=== PATIENT | male | born 1935 | race Caucasian/White ===

== ENCOUNTER → 2017-07-26 | Outpatient (CLI) | payer OTHER, BC ==
[~2017-07-26] VITALS: Ht 175.3 cm; Wt 86.5 kg
[~2017-07-26] MED LIST: ACIPHEX 20 MG T20 MG PO; AMARYL1 MG PO; AMARYL2 MG PO; ASPIRIN EC325 M1 PO; ASPIRIN325 PO; BAYER CHEWABLE81 MG PO; BRINTELLIX20 MG PO; BUPROPION HCL PO; BUSPIRONE HCL15 MG PO; CALCIUM CITRAT1 EA19 PO; CRESTOR20 MG PO; CRESTOR40 MG PO; GLUCOPHAGE1000 MG PO; JANUVIA100 MG PO; L-METHYLFOLATE1 EAC4 PO; L-METHYLFOLATE15 MG PO; LISINOPRIL10 MG PO; METFORMIN HCL1000 M1 PO; METHYLPREDNISOLO4 M1 PO; METOCLOPRAMIDE10 MG PO; NITROGLYCERIN0.4 MG SUBLING; OMEPRAZOLE 20 M20 M1 PO; PACERONE200 MG PO; PEPCID20 MG PO; PLAVIX 75 MG TA75 M1 PO; PRADAXA150 MG PO; PREDNISONE 10 M10 MG PO; PRILOSEC 20 MG20 MG PO; PRISTIQ100 MG PO; PRISTIQ50 M1 PO; PROTONIX40 M1 PO; SINEMET 25-1001 EAC1 PO; TOPROL XL25 MG PO; VITAMIN B-12500 MCG PO; VITAMIN D32000 UNIT PO; WELLBUTRIN XL300 MG PO
--- NOTE | ~2017-07-26 | HPC ---
[facility] [address] [place] [address] PAIN MANAGEMENT CONSULTATION Name: COREY FOURNIER Room #: [facility].#: [id number] Admission: 07/26/17 Attend Phys: Aguilar Rollins DO Discharge: Date of : 33 Report #: [id number] THIS REPORT FOR: //name// CC: Sapphire Rollins DATE OF SERVICE: 07/26/2017 REFERRING PHYSICIAN: Sapphire Connor M.D. CHIEF COMPLAINT: Low back pain, left lower extremity pain with paresthesias. HISTORY OF PRESENT ILLNESS: As you know, the patient is an 81-year-old male who has been referred to our service for ongoing low back pain, left lower extremity pain and paresthesias. The patient apparently failed conservative treatment through his primary care physician's office and was subsequently referred to our clinic to discuss epidural injections. He indicates today pain is continuous, steady and constant, describes the pain as burning, shooting, aching and sharp, places current pain score at 8/10, daily average at 8/10, worst pain has been 9/10. The patient states pain is exacerbated with lying down, improves with repositioning. He has been referred to our service to discuss treatment options for suspected lumbar radiculopathy. PAST MEDICAL HISTORY: 1. Hypertension. 2. Parkinson's disease. 3. Diabetes mellitus type 2. 4. Dyslipidemia. 5. Gastroesophageal reflux disease. PAST SURGICAL HISTORY: 1. Coronary artery stenting. 2. Herniorrhaphy. SOCIAL HISTORY: The patient smokes 1 pack tobacco per day, has done so for 40 years. Denies IV or illicit drug use. Admits to one alcoholic beverage per month. He is retired, retired 20 years ago. He is not receiving workmen's compensation nor is trying to obtain disability benefits. Not in litigation in regards to pain. REVIEW OF SYSTEMS: Positive for weight gain, decrease in appetite, fatigue and weakness, hearing loss with tinnitus, heart trouble, requiring stenting, change in bowel movements, interspersed with constipation, frequent urination, nocturia, incontinence and dribbling to urine, change of force or stream urination, sexual difficulty, lightheadedness, dizziness, depression, insomnia, [facility] [address] [place] [address] PAIN MANAGEMENT CONSULTATION Name: COREY FOURNIER Room #: [facility].#: [id number] Admission: 07/26/17 Attend Phys: Aguilar Rollins DO Discharge: Date of : 33 Report #: [id number] non-insulin dependent diabetes and hypertension. All other review of systems negative per 12-point review of systems other than those listed in history of present illness. Pain impact score 33/70 indicating moderate interference of daily activities secondary to pain. ALLERGIES: No reported drug allergies. CURRENT MEDICATIONS: Prednisone and the Medrol Dosepak, pantoprazole 40 mg per day, L-methylfolate 1 tab per day, famotidine 20 mg per day, Pradaxa 150 mg twice a day, cyanocobalamin once a day, cholecalciferol 2000 units per day, carbidopa/levodopa 25/100 mg 3 times a day, amiodarone 200 mg once a day, Trintellix 20 mg once a day, Januvia 100 mg per day, aspirin 325 mg per day, metformin 1000 mg twice a day, nitroglycerin 0.4 mg p.r.n., lisinopril 10 mg per day, metoprolol 25 mg once a day. IMAGING: MRI lumbar spine obtained 07/18/2017 shows small focal disk protrusion, sequestered disk fragment just superior to the left L3-L4 disk space, contributes to moderate to severe left foraminal stenosis adjacent left endplate edema noted, multilevel degenerative changes with grade 1 anterolisthesis of L4 on L5 and L5 on S1, combination resulting in moderate central canal stenosis and moderate left and severe right foraminal stenosis at L5-S1. PHYSICAL EXAMINATION: VITAL SIGNS: Blood pressure 116/56, pulse 82, respiratory rate 16, unlabored. The patient is 97% on room air, height 5 feet 9 inches tall, weight 190 pounds, BMI calculated 28.2. GENERAL: Well-developed, well-nourished, well-hydrated 81-year-old male appearing his stated age, placing current pain score at 8/10. HEENT: Normocephalic, atraumatic. Pupils are equal, round and reactive to light. Extraocular muscles are intact. Sclerae are nonicteric without injection. NEUROLOGIC: Speech is fluent for the patient. The patient deemed a fair historian. LUNGS: Clear. No wheeze, rhonchi or rales. CARDIOVASCULAR: Regular. No appreciable gallop or rub. ABDOMEN: Soft, nontender, nondistended. EXTREMITIES: Show no clubbing, no cyanosis, no edema. MUSCULOSKELETAL: Lower extremity strength appears equal and symmetrical 5/5. Deconditioning noted bilaterally. Ankle clonus is negative. Babinski is negative. Seated straight leg raising negative. Supine straight leg raising positive on the left. Sushma's test negative. Modified Gaenslen's positive for axial low back pain. Intact to light touch from L1 through S2 dermatomes. Gait antalgic favoring left lower extremity over right. [address] [address] PAIN MANAGEMENT CONSULTATION Name: COREY FOURNIER Room #: [facility]#: [id number] Admission: 07/26/17 Attend Phys: Aguilar Rollins DO Discharge: Date of : 33 Report #: [id number] ASSESSMENT: 1. Symptomatic lumbar radiculopathy. 2. Spinal stenosis of lumbar spine. 3. Displacement of lumbar intervertebral disk with radiculopathy. 4. Lumbosacral spondylosis with radiculopathy. 5. Lumbar degeneration. 6. Chronic intractable pain. PLAN: 1. Based on today's physical exam, history the patient has provided, the prescription the patient uses in regards to pain as well as the location of symptoms and the finding on MRI, likely source of the patient's pain is lumbar radiculopathy. The patient is suffering from changes at the L3-L4 level that correlate the patient's current pain and distribution. The patient and I discussed at length the treatment options available for lumbar radicular pain secondary to the findings at the L3-L4 level. These would include physical therapy, stretching exercises, core strengthening. We discussed medication management with the addition of a neuropathic pain medication. He has precluded from having a nonsteroidal anti-inflammatory due to the concomitant use of Pradaxa. We discussed the epidural injections for which the patient was referred to our clinic, spinal cord stimulator therapy and surgical options. After reviewing risks and benefits of all proposed treatment options, the patient chose to undergo epidural injection under fluoroscopic guidance. The patient indicates today he has stopped his Pradaxa well before our clinic visit today. Typical time off Pradaxa is 5 days, the patient has been off for nearly 12. He is prepared to undergo the procedure today. He has been advised of the risks and the benefits of a lumbar epidural injection. These risks include but are not necessarily limited to bleeding, bruising, infection, worsening pain, no relief of pain, also risk of temporary or permanent muscle weakness, temporary or permanent nerve damage, possible paralysis and . The patient states understood and wished to proceed. 2. No medication changes were made at today's visit. The patient will restart his Pradaxa starting today and continue the Pradaxa until our next visit. 3. We will see the patient back in followup visit in approximately 3 weeks. At that time, we will discuss the efficacy of today's epidural injection and determine if next in the series would be necessary. The patient was advised that he has to be off his Pradaxa 5 days prior to the injection to safely undergo the procedure. 4. We wish to thank the referring physician, Dr. Sapphire Connor for the referral of this patient to our clinic. We will keep you apprised of his response to treatment as we address his lumbar radicular symptoms. Again, we wish to thank you for the opportunity to participate in his care[place] [address] PAIN MANAGEMENT CONSULTATION Name: SHANTANUCOREY Room #: REG [facility]#: [id number] Admission: 07/26/17 Attend Phys: Aguilar Rollins DO Discharge: Date of : 33 Report #: [id number] DESCRIPTION OF PROCEDURE: L4-L5 left paramedian epidural steroid injection under fluoroscopic guidance. This is the first procedure of the first series that the patient is undergoing. After obtaining written consent, the patient was taken back to the fluoroscopy suite, placed in a prone position with pillow under the abdomen to decrease lumbar lordosis. The skin overlying the lumbosacral area was then prepped and draped in aseptic fashion. The L4-L5 vertebral interspace was then identified by AP fluoroscopy. The skin and subcutaneous tissue overlying the target site of injection was anesthetized with 3 mL 1% lidocaine. A 20-gauge 3-1/2 Tuohy needle was then advanced under fluoroscopic guidance towards the epidural space using a left paramedian approach. The epidural space was identified using loss of resistance to air technique. After negative aspiration for heme or cerebrospinal fluid, a total of 1 mL of Omnipaque was injected. A lumbar epidurogram was confirmed using both AP and lateral fluoroscopy. After negative aspiration for heme or cerebrospinal fluid, 5 mL of a solution containing 2 mL 40 mg per mL, 80 mg total triamcinolone, 3 mL lidocaine 1% was injected in increments. Contrast spread was noted posterior epidural space. The needle was then retracted approximately half way and needle tract flushed with 1 mL of 1% lidocaine. Needle was then removed. There were no apparent sensory or motor deficits in the lower extremity following the procedure. A sterile bandage was placed over the injection site. The heart rate, pulse, oximetry and blood pressure were continuously monitored after the procedure. There were no apparent complications. The patient tolerated the procedure well and was carefully escorted to the recovery room in stable condition. There were no apparent complications. After meeting discharge criteria, the patient was then discharged home. By: [id number] Aguilar Rollins DO /nt
[2017-07-26 13:56] VITALS: BP 116/56
== END | disposition home or self-care (01) ==
LOC: PAIN 07:14
DX: M51.16 Intervertebral disc disorders with radiculopathy, lumbar region (principal); M48.06 Spinal stenosis, lumbar region; M47.27 Other spondylosis with radiculopathy, lumbosacral region; G89.29 Other chronic pain; G20 Parkinson's disease; E78.5 Hyperlipidemia, unspecified; K21.9 Gastro-esophageal reflux disease without esophagitis; Z95.1 Presence of aortocoronary bypass graft; Z98.890 Other specified postprocedural states; F17.210 Nicotine dependence, cigarettes, uncomplicated; Z85.46 Personal history of malignant neoplasm of prostate; F98.8 Other specified behavioral and emotional disorders with onset usually occurring in childhood and adolescence; F32.9 Major depressive disorder, single episode, unspecified; E11.22 Type 2 diabetes mellitus with diabetic chronic kidney disease; I12.9 Hypertensive chronic kidney disease with stage 1 through stage 4 chronic kidney disease, or unspecified chronic kidney disease; N18.3 Chronic kidney disease, stage 3 (moderate)

== ENCOUNTER → 2019-03-21 | Outpatient (CLI) | payer OTHER, BC ==
[~2019-03-21] VITALS: Ht 177.8 cm; Wt 93.1 kg
[~2019-03-21] MED LIST changes: +GLUCOPHAGE XR500 MG PO; +LEVOXYL25 MCG PO; +RITALIN5 MG PO; +XARELTO20 MG PO
[2019-03-21 08:58] VITALS: BP 123/73
--- NOTE | 2019-03-21 09:17 | NUR ---
Pain Clinic Assessment: 1. History of Osteoarthritis: History of Rheumatoid Arthritis: 2. Height: 5 ft. 10 in. 177.8 cm. Weight: 205.2 lb. oz. 93.078 kg. Patient's BMI: 29.4 3. Vital Signs: BP: 123/73 Pulse: 60 Resp: 16 Temp: 02 Sat: 99 ECG Mon: 4. Pain Intensity: 5 5. Fall Risk: Dizziness: Y Needs help standing or walking: N Fallen in the last 3 months: N Fall risk comments: 6. Patient on Blood Thinner: XARELTO 7. History of Hypertension: Y 8. Opioid Therapy greater than 6 weeks: N Opiate Contract Signed: 9. Risk Assessment Tool Provided: LOW 10. Functional Assessment Tool: 11. Recreational Drug Use: Never Drug Type: Tobacco Use: Former Smoker Tobacco Type: Amount or Packs/day: How Many Years: Alcohol Use: No Frequency: Quant:
--- NOTE | 2019-03-28 12:39 | HPC ---
[facility] [place] [address] PAIN MANAGEMENT CONSULTATION Name: SHANTANUCOREY Do Room #: [facility]#: [id number] Admission: 03/21/19 ������������������ Attend Phys: Aguilar Rollins DO Discharge: ������������������ Date of : 33 Report #: [id number] THIS REPORT FOR: //name// CC: Sapphire Rollins DATE OF SERVICE: 03/21/2019 CHIEF COMPLAINT: Low back pain, left lower extremity pain with paresthesias. HISTORY OF PRESENT ILLNESS: As you know, the patient is a pleasant 83-year-old male who returns today in followup visit having recurrence of pain that began about 5 weeks ago. The patient denies any specific injury or trauma. He describes the pain as constant, burning, aching, sharp in sensation, exacerbated with lying down, improves with exercises and previous epidural injections. He is placing pain score at 5/10. The patient was last seen in our clinic and underwent a lumbar epidural injection on 07/26/2017 with good efficacy. He returns today requesting next in the series of lumbar epidural injections to address recurrent lumbar radicular symptoms. He denies injury or trauma. ALLERGIES: NO REPORTED DRUG ALLERGIES. CURRENT MEDICATIONS: Metformin, Xarelto, prednisone, pantoprazole, L-methylfolate, famotidine, cyanocobalamin, cholecalciferol, carbidopa/levodopa, calcium carbonate, amiodarone, Trintellix, aspirin, metformin, nitroglycerin, lisinopril and metoprolol. SOCIAL HISTORY: The patient continues to smoke 1 pack tobacco per day, has done so for 43 years. Denies IV or illicit drug use. Admits to 1 alcoholic beverage per month. He is retired, he retired years ago, accompanied by his family member present in room today. IMAGING: There is no new imaging available. PQRS: The patient has known osteoarthritic changes of the lumbar spine, bilateral hips and bilateral knees. No rheumatoid arthritis. He is not a fall risk, has not had a fall in the last 3 months, placing pain score 5/10. He is on blood thinner in the form of Xarelto, but discontinued the medication 3 days ago in preparation for today's procedure. He is treated for hypertension. He is not on chronic opioids. He has a low opioid addiction potential. He is placing pain impact score 41/70 indicating moderate to severe interference of daily activities secondary to pain. PHYSICAL EXAMINATION: VITAL SIGNS: Blood pressure 123/73, pulse 60, respiratory rate [address] [address] PAIN MANAGEMENT CONSULTATION Name: COREY FOURNIER Room #: [facility]#: [id number] Admission: 03/21/19 ������������������ Attend Phys: Aguilar Rollins DO Discharge: ������������������ Date of : 33 Report #: [id number] unlabored, the patient is 99% on room air. Height 5 feet 10 inches tall, weight 205.2 pounds, BMI calculated 29.4. GENERAL: Well-developed, well-nourished, well-hydrated 83-year-old male appearing stated age, placing current pain score at 5/10. HEENT: Normocephalic, atraumatic. Pupils equal, round, reactive to light. EXTREMITIES: Show no clubbing and no cyanosis and no edema. MUSCULOSKELETAL: Lower extremity strength appears symmetrical 5/5. Slight giveaway strength noted on the left when compared to right. Pain is generated with this maneuver. Seated straight leg raising negative. Supine straight leg raising positive on the left. Sushma's test negative. Modified Gaenslen's positive for axial low back pain. Ankle clonus negative. Gait, mildly antalgic favoring the left lower extremity over right. ASSESSMENT: 1. Symptomatic lumbar radiculopathy. 2. Spinal stenosis of the lumbar spine. 3. Displacement of lumbar intervertebral disk with radiculopathy. 4. Lumbosacral spondylosis with radiculopathy. 5. Lumbar degeneration. 6. Chronic intractable pain. PLAN: 1. The patient returns today in followup visit having recurrence of lumbar radicular symptoms involving left lower extremity that began about 5 weeks ago. The patient denies any specific injury or trauma that may have led to symptom recurrence. He returns today requesting to undergo a lumbar epidural injection under fluoroscopic guidance to address lumbar radicular symptoms. He has been advised the risks and benefits of the procedure, states understood and wished to proceed. 2. The patient will restart his Xarelto this evening. He will continue the Xarelto as directed. He will need to discontinue this medication 3 days prior to our next appointment if he wishes to undergo next in the series of lumbar epidural injections. 3. No medication changes made at today's visit. The patient will continue current medical therapy. 4. We will see the patient back in followup visit on an as needed basis for possible next in the series of lumbar epidural injections. PROCEDURE NOTE DESCRIPTION OF PROCEDURE: L4-L5 interlaminar epidural steroid injection under fluoroscopic guidance. After obtaining written consent, the patient was taken back to fluoroscopy suite, placed in prone position with pillow under abdomen to decrease lumbar lordosis. Skin overlying lumbosacral area then prepped and draped in aseptic [address] [address] PAIN MANAGEMENT CONSULTATION Name: COREY FOURNIER Room #: [facility]#: [id number] Admission: 03/21/19 ������������������ Attend Phys: Aguilar Rollins DO Discharge: ������������������ Date of : 31 Report #: [id number] fashion. The L4-L5 vertebral interspace identified by AP fluoroscopy. Skin and subcutaneous tissue overlying target site of injection was anesthetized with 3 mL of 1% lidocaine. A 20-gauge 3-1/2 inch Tuohy needle advanced under fluoroscopic guidance towards the epidural space using a paramedian approach. Epidural space identified using loss of resistance to air technique. After negative aspiration for heme or cerebrospinal fluid, 1 mL of Omnipaque injected. A lumbar epidurogram confirmed using both AP and lateral fluoroscopy. After negative aspiration for heme or cerebrospinal fluid, 5 mL of a solution containing 2 mL 40 mg per mL 80 mg total triamcinolone, 3 mL lidocaine 1% injected slowly. Needle retracted shelter, flushed with 1 mL of 1% lidocaine and then removed. Sterile bandage placed over injection site. No new motor deficits present in the lower extremities following procedure. The patient tolerated the procedure well, carefully escorted to recovery room in stable condition. No apparent complications. After meeting discharge criteria, the patient discharged home. ��������������������������������������������� <ELECTRONICALLY SIGNED> ���������������������������������������� By: Aguilar Rollins DO ��������������������������������������������� 03/28/19 1239 0740 0149 Aguilar Rollins DO /nt
== END | disposition home or self-care (01) ==
LOC: PAIN 06:55
DX: M51.16 Intervertebral disc disorders with radiculopathy, lumbar region (principal); M48.061 Spinal stenosis, lumbar region without neurogenic claudication; M47.27 Other spondylosis with radiculopathy, lumbosacral region; G89.29 Other chronic pain; M19.90 Unspecified osteoarthritis, unspecified site; Z79.01 Long term (current) use of anticoagulants; I10 Essential (primary) hypertension; Z79.899 Other long term (current) drug therapy; Z87.891 Personal history of nicotine dependence; Z79.82 Long term (current) use of aspirin; Z98.890 Other specified postprocedural states

== ENCOUNTER → 2019-03-27 | Outpatient (CLI) | payer OTHER, BC ==
[~2019-03-27] VITALS: Ht 175.3 cm; Wt 93.0 kg
[2019-03-27 10:04] LABS: HEMATOCRIT 40.5 % (42.0-52.0); HEMOGLOBIN 13.3 gm/dL (14.0-18.0); MCH 28.6 pg (26.0-34.0); MCHC 32.9 g/dL (28.0-37.0); MCV 86.9 fL (80.0-100.0); RBC 4.66 mil/uL (4.50-6.00); RDW 13.9 % (10.5-14.5); WBC 8.9 thou/uL (4.0-11.0)
[2019-03-27 10:13] LABS: ANION GAP 7 mmol/L (7-16); BUN 42 mg/dL (7-18); CALCIUM 9.9 mg/dL (8.5-10.1); CHLORIDE 102 mmol/L (98-107); CO2 26 mmol/L (21-32); CREATININE 1.9 mg/dL (0.7-1.3); GLUCOSE 285 mg/dL (74-106); POTASSIUM 4.8 mmol/L (3.5-5.1); SODIUM 135 mmol/L (136-145)
[2019-03-27 10:19] LABS: CHOLESTEROL 113 mg/dL (<200); HDL CHOLESTEROL 55 mg/dL (>40); LDL CHOLESTEROL 44 mg/dL (<100); TC:HDL 2.1 Ratio (Not establshd); TRIGLYCERIDE 72 mg/dL (<150); VLDL 14 mg/dL (<40)
[2019-03-27 10:24] VITALS: BP 136/73
--- NOTE | 2019-03-27 17:15 | EKG ---
[address] [address] ELECTROCARDIOGRAM REPORT Name: COREY FOURNIER Room #: [facility]#: [id number] ������������������ Admission: 03/27/19 ������������������ Attend Phys: Pito Gomes MD Discharge: ������������������ Date of : 33 Report #: [id number] ����������������������������������������������������������������� [id number] THIS REPORT FOR: //name// [facility] Test Date: 2019-03-27 Test Time: 10:07:07 Pat Name: COREY FOURNIER Department: Room: Gender: Legal Document Specialist: Larry BERKOWITZ : 1935 Requested By: Pito Gomes Order Number: [id number] MD: Kaushik Desouza Measurements Intervals [place] Rate: 62 P: 55 SD: 188 QRS: -1 QRSD: 97 T: 59 QT: 434 QTc: 441 Interpretive Statements Sinus rhythm Compared to ECG 04/30/2018 16:17:03 No significant changes Electronically Signed On 03-27-2019 17:15:41 CDT by Kaushik Desouza [email or web address] ��������������������������������������������� <ELECTRONICALLY SIGNED> ���������������������������������������� By: Kaushik Desouza MD ��������������������������������������������� 03/27/19 1715 1007 MD ONEAL Gannon
== END | disposition home or self-care (01) ==
LOC: CATH 05:44
PROVIDERS: Internal Medicine Cardiovascular Disease
DX: R07.9 Chest pain, unspecified (principal); I12.9 Hypertensive chronic kidney disease with stage 1 through stage 4 chronic kidney disease, or unspecified chronic kidney disease; E11.22 Type 2 diabetes mellitus with diabetic chronic kidney disease; N18.3 Chronic kidney disease, stage 3 (moderate); I25.10 Atherosclerotic heart disease of native coronary artery without angina pectoris; I48.91 Unspecified atrial fibrillation; E78.5 Hyperlipidemia, unspecified; E78.00 Pure hypercholesterolemia, unspecified; G20 Parkinson's disease; F32.9 Major depressive disorder, single episode, unspecified; Z82.49 Family history of ischemic heart disease and other diseases of the circulatory system; Z98.890 Other specified postprocedural states; Z85.46 Personal history of malignant neoplasm of prostate; Z90.49 Acquired absence of other specified parts of digestive tract; Z79.01 Long term (current) use of anticoagulants; Z53.8 Procedure and treatment not carried out for other reasons; Z79.899 Other long term (current) drug therapy

== ENCOUNTER → 2019-04-02 | Outpatient (CLI) | payer OTHER, BC | LOC: ULTRA 14:23 | DX: N28.9 Disorder of kidney and ureter, unspecified (principal); I10 Essential (primary) hypertension ==

== ENCOUNTER → 2019-04-09 | Outpatient (CLI) | payer OTHER, BC ==
[~2019-04-09] VITALS: Ht 175.3 cm; Wt 93.0 kg
[2019-04-09 09:07] LABS: HEMATOCRIT 41.1 % (42.0-52.0); HEMOGLOBIN 13.4 gm/dL (14.0-18.0); MCH 28.8 pg (26.0-34.0); MCHC 32.6 g/dL (28.0-37.0); MCV 88.5 fL (80.0-100.0); RBC 4.65 mil/uL (4.50-6.00); RDW 13.7 % (10.5-14.5)
[2019-04-09 09:09] VITALS: BP 121/63
[2019-04-09 09:17] LABS: CALCIUM 10.4 mg/dL (8.5-10.1); POTASSIUM 4.2 mmol/L (3.5-5.1)
--- NOTE | 2019-04-09 16:43 | CATHLAB ---
[facility] [address] [place] [address] INVASIVE PROCEDURE REPORT Name: COREY FOURNIER [facility] [id number] ������������� Admission: 04/09/19 ������������� Attend Phys: Pito Gomes MD Discharge: ��� ������������� ��� Date of : 31 Date of Service: 04/09/19 1643 �� Report #: [id number] �������� ��������������������������������������������[id number] THIS REPORT FOR: //name// APPROVED REPORT Study performed: 04/09/2019 12:15:03 Patient Details Patient Status: Out-Patient Room #: The patient is a 83 year-old male Event Personnel Pito Gomes Senior Manufacturing Technician, Ivelisse Huff RN, Elana Sexton RN RN, Renata OLIVERA CRITICAL CARE CLINICAL NURSE SPECIALIST Scrub, Morena Amaya RTR, CRITICAL CARE CLINICAL NURSE SPECIALIST Monitor Procedures Performed Art Access - R femoral artery* Left Heart Cath w/or w/o Coronaries [id number] [facility] [id number] Initial Mod Sed Same Phys/QHP Gr5y [id number] Hemostasis with Manual pressure Indication Dyspnea, Positive stress test Risk Factors Hypercholesterolemia, Coronary Artery DiseaseHypertensionRenal Failure, Diabetes Previous Procedures/Diagnoses Previous PCI Procedure Narrative The Right Groin^ was infiltrated with 1% Lidocaine subcutaneous anesthesia. A PINNACLE 4FR Sheath #[id number] sheath was inserted into the RFA^. Coronary angiography was performed using coronary diagnostic catheters. The right coronary system was accessed and visualized with a JR4 catheter. The left coronary system was accessed and visualized with a JL5 catheter. The left ventricle was accessed and visualized with a angled pigtail catheter. Left ventricular/Aortic Valve gradient assessed via catheter pullback. Hemostasis was obtained with manual pressure following sheath removal without any complications. The patient tolerated the procedure well and there were no complications associated with the procedure. There was no hematoma. [facility] [address] [place] [address] INVASIVE PROCEDURE REPORT Name: SHANTANUCOREY CUENCA Room #: REG [facility]#: [id number] ������������� Admission: 04/09/19 ������������� Attend Phys: Pito Gomes MD Discharge: ��� ������������� ��� Date of : 31 Date of Service: 04/09/19 1643 �� Report #: [id number] �������� ��������������������������������������������[id number] Intraoperative Conscious Sedation Sedation start time: 12:37 Case end Time: 13:05 Fentanyl 50 mcg Versed 1 mg Fluoro Time: 1.49 minutes Dose: DAP 3492.20 cGycm2 427 mGy Contrast Type and Amount: Visipaque 30 ml Coronary Angiography The patient's coronary anatomy is right dominant. Diagnostic Cath Left Main This is a large caliber vessel, patent with no flow-limiting lesions. LAD This is a moderate size caliber vessel, traversing the anterior wall and terminating at the apex. The distal segment tapers down to a small caliber vessel. There is mild diffuse disease in the proximal segment, 30%. Diagonal 1 This is a patent vessel, with no flow-limiting lesions. Diagonal 2 This is a patent vessel, with no flow-limiting lesions. Circumflex This is a patent vessel, with no flow-limiting lesions, supplies one moderate size OM vessel. OM1 There is mild diffuse disease in the proximal segment, 20%. As it travels down the lateral wall, it supplies several small branches. Right Coronary This is a moderate to large caliber vessel, dominant. There is a patent stent in the mid/distal segment, with minimal restenosis. R PDA This is a small-caliber vessel, with moderate diffuse disease in the midsegment. RPLV There is a ostial stenosis, 80% - unchanged from prior procedures. Continue with medical therapy. Left Ventriculography Left Ventriculography was not performed. An LVEDP was measured and there is no gradient across the outflow tract. Hemodynamics The aortic pressure is 139/73 mmHg with a mean of 99 mmHg. The left ventricular pressure is 134/12 mmHg with a mean of mmHg. The left ventricular end diastolic pressure is 17 mmHg. Conclusion [facility] [address] [place] [address] INVASIVE PROCEDURE REPORT Name: COREY FOURNIER [facility]: [facility] [id number] ������������� Admission: 04/09/19 ������������� Attend Phys: Pito Gomes MD Discharge: ��� ������������� ��� Date of : 31 Date of Service: 04/09/19 1643 �� Report #: [id number] �������� ��������������������������������������������[id number] 1. Patent stent in the RCA. 2. There is mild disease in the LAD and left circumflex arteries. 3. There is a severe stenosis at the ostium of a right posterior lateral branch. This is unchanged from prior procedures and medical therapy is recommended. 4. Recommend aggressive risk factor management. ��������������������������������������������� <ELECTRONICALLY SIGNED> ���������������������������������������� By: Pito Gomes MD ��������������������������������������������� 04/09/19 1643 164 164 Pito Gomes MD /INF
--- NOTE | 2019-04-09 18:04 | EKG ---
[address] [address] ELECTROCARDIOGRAM REPORT Name: COREY FOURNIER [id number] ������������������ Admission: 04/09/19 ������������������ Attend Phys: Pito Gomes MD Discharge: ������������������ Date of : 31 Report #: [id number] ����������������������������������������������������������������� [id number] THIS REPORT FOR: //name// [facility] Test Date: 2019-04-09 Test Time: 08:57:34 Pat Name: COREY FOURNIER Department: Room: Gender: Sports Commentator: Larry BERKOWITZ : 1935 Requested By: Pito Gomes Order Number: [id number] MD: Kaushik Desouza Measurements Intervals [place] Rate: 58 P: 57 ID: 191 QRS: 5 QRSD: 95 T: 60 QT: 452 QTc: 445 Interpretive Statements Sinus rhythm Compared to ECG 03/27/2019 10:07:07 No significant changes Electronically Signed On 04-09-2019 18:04:43 CDT by Kaushik Desouza [email or web address] ��������������������������������������������� <ELECTRONICALLY SIGNED> ���������������������������������������� By: Kaushik Desouza MD ��������������������������������������������� 04/09/19 1804 0857 6 Kaushik Desouza MD /TRENT
== END | disposition home or self-care (01) ==
LOC: CATH 06:56
PROVIDERS: Internal Medicine Cardiovascular Disease
DX: I25.10 Atherosclerotic heart disease of native coronary artery without angina pectoris (principal); I12.9 Hypertensive chronic kidney disease with stage 1 through stage 4 chronic kidney disease, or unspecified chronic kidney disease; E11.22 Type 2 diabetes mellitus with diabetic chronic kidney disease; N18.3 Chronic kidney disease, stage 3 (moderate); E78.00 Pure hypercholesterolemia, unspecified; G20 Parkinson's disease; F32.9 Major depressive disorder, single episode, unspecified; K21.9 Gastro-esophageal reflux disease without esophagitis; I48.91 Unspecified atrial fibrillation; I48.92 Unspecified atrial flutter; Z85.46 Personal history of malignant neoplasm of prostate; Z90.49 Acquired absence of other specified parts of digestive tract; Z95.5 Presence of coronary angioplasty implant and graft; Z98.890 Other specified postprocedural states; Z79.899 Other long term (current) drug therapy; Z79.01 Long term (current) use of anticoagulants; Z79.82 Long term (current) use of aspirin

== ENCOUNTER 2019-09-20 14:13 | Emergency (ER) | payer OTHER, BC ==
[~2019-09-20] VITALS: Ht 177.8 cm; Wt 76.7 kg
[2019-09-20] MEDS ORDERED: TRAMADOL 50 MG50 MG PO (16:25)
[2019-09-20 17:05] VITALS: BP 134/62
== END 2019-09-20 17:06 | disposition home or self-care (01) ==
LOC: ER 14:13
DX: M54.5 Low back pain (principal); I25.10 Atherosclerotic heart disease of native coronary artery without angina pectoris; I48.91 Unspecified atrial fibrillation; I12.9 Hypertensive chronic kidney disease with stage 1 through stage 4 chronic kidney disease, or unspecified chronic kidney disease; E11.22 Type 2 diabetes mellitus with diabetic chronic kidney disease; N18.3 Chronic kidney disease, stage 3 (moderate); K21.9 Gastro-esophageal reflux disease without esophagitis; G20 Parkinson's disease; F32.9 Major depressive disorder, single episode, unspecified; F90.9 Attention-deficit hyperactivity disorder, unspecified type; F17.210 Nicotine dependence, cigarettes, uncomplicated; Z95.5 Presence of coronary angioplasty implant and graft; Z90.49 Acquired absence of other specified parts of digestive tract; Z79.01 Long term (current) use of anticoagulants; Z85.46 Personal history of malignant neoplasm of prostate; W01.0XXA Fall on same level from slipping, tripping and stumbling without subsequent striking against object, initial encounter; Y93.41 Activity, dancing; Y92.89 Other specified places as the place of occurrence of the external cause; Y99.8 Other external cause status

== ENCOUNTER → 2019-10-30 | Outpatient (CLI) | payer OTHER, BC ==
[~2019-10-30] MED LIST changes: +TRAMADOL 50 MG50 MG PO
== END ==
LOC: CAT 15:13 → RAD 15:13
DX: Z13.6 Encounter for screening for cardiovascular disorders (principal); I27.20 Pulmonary hypertension, unspecified; J98.11 Atelectasis

== ENCOUNTER → 2020-05-06 | Outpatient (CLI) | payer OTHER, BC | LOC: SJCVCIMAG 09:20 | PROVIDERS: ATTEND Internal Medicine Cardiovascular Disease | DX: I07.1 Rheumatic tricuspid insufficiency (principal); I11.9 Hypertensive heart disease without heart failure; I25.10 Atherosclerotic heart disease of native coronary artery without angina pectoris; I48.0 Paroxysmal atrial fibrillation; E78.00 Pure hypercholesterolemia, unspecified; E11.9 Type 2 diabetes mellitus without complications; M19.90 Unspecified osteoarthritis, unspecified site; F17.200 Nicotine dependence, unspecified, uncomplicated; Z82.49 Family history of ischemic heart disease and other diseases of the circulatory system; Z79.899 Other long term (current) drug therapy ==

== ENCOUNTER → 2021-02-24 | Outpatient (CLI) | payer OTHER, BC | LOC: SJCVC 11:35 | PROVIDERS: ATTEND Internal Medicine Cardiovascular Disease | DX: I25.10 Atherosclerotic heart disease of native coronary artery without angina pectoris (principal); I48.0 Paroxysmal atrial fibrillation; E78.00 Pure hypercholesterolemia, unspecified; R60.9 Edema, unspecified; R42 Dizziness and giddiness; M19.90 Unspecified osteoarthritis, unspecified site; E11.9 Type 2 diabetes mellitus without complications; I12.9 Hypertensive chronic kidney disease with stage 1 through stage 4 chronic kidney disease, or unspecified chronic kidney disease; N18.9 Chronic kidney disease, unspecified; F17.200 Nicotine dependence, unspecified, uncomplicated; Z90.49 Acquired absence of other specified parts of digestive tract; Z98.890 Other specified postprocedural states; Z98.61 Coronary angioplasty status; Z79.84 Long term (current) use of oral hypoglycemic drugs; Z79.899 Other long term (current) drug therapy; Z92.29 Personal history of other drug therapy; Z82.49 Family history of ischemic heart disease and other diseases of the circulatory system ==

== ENCOUNTER → 2021-03-19 | Outpatient (CLI) | payer OTHER, BC | LOC: SJCVCIMAG 07:56 | PROVIDERS: ATTEND Internal Medicine Cardiovascular Disease | DX: I25.10 Atherosclerotic heart disease of native coronary artery without angina pectoris (principal); R51.9 Headache, unspecified; R07.89 Other chest pain; M54.9 Dorsalgia, unspecified; I48.0 Paroxysmal atrial fibrillation; E78.00 Pure hypercholesterolemia, unspecified; R60.9 Edema, unspecified; R42 Dizziness and giddiness; M19.90 Unspecified osteoarthritis, unspecified site; E11.22 Type 2 diabetes mellitus with diabetic chronic kidney disease; I12.9 Hypertensive chronic kidney disease with stage 1 through stage 4 chronic kidney disease, or unspecified chronic kidney disease; N18.9 Chronic kidney disease, unspecified; F17.200 Nicotine dependence, unspecified, uncomplicated; Z90.49 Acquired absence of other specified parts of digestive tract; Z98.890 Other specified postprocedural states; Z98.61 Coronary angioplasty status; Z79.84 Long term (current) use of oral hypoglycemic drugs; Z79.899 Other long term (current) drug therapy; Z82.49 Family history of ischemic heart disease and other diseases of the circulatory system ==

== ENCOUNTER → 2021-09-08 | Outpatient (CLI) | payer OTHER, BC | LOC: SJCVC 13:15 | PROVIDERS: ATTEND Internal Medicine Cardiovascular Disease | DX: I48.0 Paroxysmal atrial fibrillation (principal); I25.10 Atherosclerotic heart disease of native coronary artery without angina pectoris; M19.90 Unspecified osteoarthritis, unspecified site; I12.9 Hypertensive chronic kidney disease with stage 1 through stage 4 chronic kidney disease, or unspecified chronic kidney disease; N18.9 Chronic kidney disease, unspecified; E11.22 Type 2 diabetes mellitus with diabetic chronic kidney disease; E78.00 Pure hypercholesterolemia, unspecified; G20 Parkinson's disease; F17.200 Nicotine dependence, unspecified, uncomplicated; R60.9 Edema, unspecified; Z79.84 Long term (current) use of oral hypoglycemic drugs; Z79.899 Other long term (current) drug therapy; Z72.89 Other problems related to lifestyle; Z95.818 Presence of other cardiac implants and grafts ==

== ENCOUNTER → 2021-10-13 | Outpatient (CLI) | payer OTHER, BC ==
--- NOTE | ~2021-10-13 | PFR/MVV ---
[facility] [place] [address] PULMONARY FUNCTION MVV/REPORT Name: COREY FOURNIER Room #: REG [facility].#: [id number] Admission: 10/13/21 Attend Phys: Pito Gomes MD Discharge: Date of : 31 Report #: [id number] THIS REPORT FOR: //name// >> SPIROMETRY: (BTPS) Height: in cm Weight: lbs kg Exam Date: PRE-RX POST-RX PRED BEST %PRED BEST %PRED %CHG FVC LITERS . . . . . . FEV1 LITERS . . . . . . FEV1/FVC % . . . . . . EQS76-07% L/Sec . . . . . . PEF L/SEC . . . . . . FEF50/FIF50 UNITLESS . . . . . . MVV L/Min . . . f 1/Min . . . >> LUNG VOLUMES: (BTPS) PRE-RX POST-RX PRED AVG %PRED AVG %PRED %CHG VC Liters . . . . . . TLC Liters . . . . . . RV Liters . . . . . . RV/TLC % . . . . . . FRC PL Liters . . . . . . FRC N2 Liters . . . . . . ERV Liters . . . . . . IC Liters . . . . . . >> DIFFUSION: DLCO ml/Min/mmHg . . . . . . DL Samia ml/Min/mmHg . . . . . . DLCO/VA ml/Min/mmHg . . . . . . VA Liters . . . . . . COMMENTS: COMMENTS: >> RESISTANCE: [facility] [address] [place] [address] PULMONARY FUNCTION MVV/REPORT Name: SHANTANUCOREY Room #: REG [facility]#: [id number] Admission: 10/13/21 Attend Phys: Pito Gomes MD Discharge: Date of : 31 Report #: [id number] PRE-RX PRED AVG %PRED Raw Total cmH20/L/Sec . . . Raw Insp cmH20/L/Sec . . . Raw Exp cmH20/L/Sec . . . Raw cmH20/L/Sec . . . Gaw L/Sec/cmH20 . . . sRaw cmH20 Sec . . . sGaw l/cmH20 Sec . . . Vtq Liters . . . # = OUTSIDE 95% CONFIDENCE INTERVAL CALIBRATION: PRED: 3.00 ACTUAL: EXP 3.01 INSP 3.02 [facility] [place] [address] N-[id number] >> INTERPRETATION/IMPRESSION: DATE OF SERVICE: 10/13/2021 SPIROMETRY: FEV1 is 3.26 liters (138% predicted), FVC is 4.94 liters (126% predicted), FEV1/FVC ratio 66%. There is a significant response to bronchodilator therapy. FVC increased to 5.75 liters (16% change). LUNG VOLUMES: Total lung capacity is 21.05 liters (337%). Diffusing capacity is 137%. IMPRESSION: Pulmonary function studies are consistent with normal pulmonary function. FEV1/FVC ratio is decreased; however, likely a physiologic variant. There is a significant response to bronchodilator therapy. There is notation that the patient did not tolerate the body box; however, numbers are normal on studies. Does raise a question of efficacy of testing. May consider repeat. Correlate clinically. By: Brian Frank MD /nt
== END ==
LOC: PUL 10:14
PROVIDERS: ATTEND Internal Medicine Cardiovascular Disease
DX: Z20.822 Contact with and (suspected) exposure to COVID-19 (principal); Z92.29 Personal history of other drug therapy

== ENCOUNTER → 2021-12-17 | Outpatient (CLI) | payer OTHER, BC | LOC: SJCVCIMAG 06:59 | PROVIDERS: ATTEND Internal Medicine Cardiovascular Disease | DX: I51.89 Other ill-defined heart diseases (principal); I35.8 Other nonrheumatic aortic valve disorders; I65.23 Occlusion and stenosis of bilateral carotid arteries; I48.92 Unspecified atrial flutter; I25.10 Atherosclerotic heart disease of native coronary artery without angina pectoris; E78.00 Pure hypercholesterolemia, unspecified; G90.9 Disorder of the autonomic nervous system, unspecified; I12.9 Hypertensive chronic kidney disease with stage 1 through stage 4 chronic kidney disease, or unspecified chronic kidney disease; E11.22 Type 2 diabetes mellitus with diabetic chronic kidney disease; N18.9 Chronic kidney disease, unspecified; M19.90 Unspecified osteoarthritis, unspecified site; F17.200 Nicotine dependence, unspecified, uncomplicated; Z95.0 Presence of cardiac pacemaker; Z90.49 Acquired absence of other specified parts of digestive tract; Z98.890 Other specified postprocedural states; Z79.84 Long term (current) use of oral hypoglycemic drugs; Z79.899 Other long term (current) drug therapy ==